=== PATIENT | male | born 1990 | race Caucasian/White ===

== ENCOUNTER 2016-09-18 16:51 | Emergency (ER) | payer MEDICAID, OTHER ==
[~2016-09-18] VITALS: Ht 175.3 cm; Wt 75.0 kg
[~2016-09-18 16:51] MED LIST: ALEVE; IBUP-1636
[2016-09-18] MEDS ORDERED: LIDOCAINE HCL 1%/EPI 1:200,000 30 ML VIAL MC ONE (17:30)
[2016-09-18] MEDS ORDERED: BACITRACIN ZINC OINT UDPKT TOP ONE (17:30)
[2016-09-18 18:19] VITALS: BP 131/85
[2016-09-18] MEDS ORDERED: TETANUS, DIPHTHERIA, PERTUSSIS VAC/PF 0.5ML (>7YR OLD) IM ONE (18:30)
== END 2016-09-18 19:00 | disposition home or self-care (01) ==
LOC: ER 16:53
DX: S01.112A Laceration without foreign body of left eyelid and periocular area, initial encounter (principal); F17.210 Nicotine dependence, cigarettes, uncomplicated; F12.10 Cannabis abuse, uncomplicated; Y04.0XXA Assault by unarmed brawl or fight, initial encounter; Y93.89 Activity, other specified; Y92.488 Other paved roadways as the place of occurrence of the external cause
CPT/HCPCS: 12013; 90471; 90715; 99283; X7700; Z7610

== ENCOUNTER 2016-09-20 16:40 | Emergency (ER) | payer MEDICAID ==
[~2016-09-20] VITALS: Ht 170.2 cm; Wt 82.0 kg
[2016-09-20 17:06] VITALS: BP 129/68
== END 2016-09-20 18:40 | disposition home or self-care (01) ==
LOC: ER 18:25
DX: Z48.00 Encounter for change or removal of nonsurgical wound dressing (principal)
CPT/HCPCS: 99281

== ENCOUNTER 2016-09-25 18:01 | Emergency (ER) | payer MEDICAID ==
[~2016-09-25] VITALS: Ht 160 cm; Wt 75.0 kg
[2016-09-25 18:21] VITALS: BP 132/77
[2016-09-25] MEDS ORDERED: KETOROLAC 30MG/ML VIAL ONE (20:40)
== END 2016-09-25 22:24 | disposition left against medical advice (07) ==
LOC: ER 20:55
DX: S01.81XD Laceration without foreign body of other part of head, subsequent encounter (principal); Z53.21 Procedure and treatment not carried out due to patient leaving prior to being seen by health care provider; X58.XXXA Exposure to other specified factors, initial encounter; Y93.89 Activity, other specified; Y99.8 Other external cause status; Y92.89 Other specified places as the place of occurrence of the external cause
CPT/HCPCS: J1885